=== PATIENT | female | born 1950 | race Caucasian/White ===

== ENCOUNTER 2017-04-30 18:39 | Emergency (ER) | payer MEDICAID, MEDICARE ==
[~2017-04-30] VITALS: Ht 157.5 cm; Wt 57.0 kg
[~2017-04-30 18:39] MED LIST: BACL-19 PO; CALC500T PO; ENOX40SY4 SQ; FLUO10CA7 PO; GUAI237S4 PO; HYDR-3138 PO; HYDR-3240 PO; LORA-446 PO; METO25TA35 PO; NICO1PAT4 TD; ONDA4TAB7 PO; SENN8.6T98 PO; TEMA15CA PO
[2017-04-30 18:40] VITALS: BP 117/80
[2017-04-30] MEDS ORDERED: SODIUM CHLORIDE FLUSH 10ML SYR IVF ONE (19:00)
[2017-04-30] MEDS ORDERED: SODIUM CHLORIDE 0.9% 1,000ML IVBOLUS ONE (19:00)
[2017-04-30] MEDS ORDERED: FAMOTIDINE 20 MG/2 ML IVPush ONE (19:00)
[2017-04-30] MEDS ORDERED: MAALOX/HYOSCYAMINE/LIDOCAINE 45 ML BTL PO ONE (19:00)
[2017-04-30] MEDS ORDERED: ONDANSETRON 2MG/ML, 2ML IVPush ONE (19:00)
[2017-04-30 19:27] LABS: BLOOD UREA NITROGEN 3 mg/dL (7-18)
[2017-04-30 19:32] LABS: ASPARTATE AMINO TRANSFERASE 27 U/L (15-37)
[2017-04-30 19:35] LABS: IS PT STATUS REG ER OR PRE ER? YES
== END 2017-04-30 19:45 | disposition left against medical advice (07) ==
LOC: ED 19:39
DX: R07.2 Precordial pain (principal); F10.229 Alcohol dependence with intoxication, unspecified; R11.2 Nausea with vomiting, unspecified; F32.9 Major depressive disorder, single episode, unspecified; K21.9 Gastro-esophageal reflux disease without esophagitis; F41.9 Anxiety disorder, unspecified
CPT/HCPCS: 36415; 71010; 80053; 83690; 84484; 85025; 93005; 99285

== ENCOUNTER 2017-05-02 15:27 | Inpatient (IN) | payer OTHER, MEDICARE ==
[~2017-05-02] VITALS: Ht 157.5 cm; Wt 54.0 kg
[2017-05-02] MEDS ORDERED: PROMETHAZINE 25 MG/ML, 1ML ONE (15:37)
[2017-05-02] MEDS ORDERED: ONDANSETRON 2MG/ML, 2ML ONE (15:37)
[2017-05-02] MEDS ORDERED: SODIUM CHLORIDE 0.9% 1,000 ML IV ONE (15:38)
[2017-05-02] MEDS ORDERED: ONDANSETRON 2MG/ML, 2ML IVPush ONE (16:00)
[2017-05-02] MEDS ORDERED: PROMETHAZINE 25 MG/ML, 1ML IM ONE (16:00)
[2017-05-02] MEDS ORDERED: SODIUM CHLORIDE FLUSH 10ML SYR IVF ONE (16:00)
[2017-05-02] MEDS ORDERED: FAMOTIDINE 20 MG/2 ML IVP ONE (16:00)
[2017-05-02] MEDS ORDERED: SODIUM CHLORIDE 0.9% 1,000ML IVBOLUS ONE ×2 (16:00→16:30)
[2017-05-02] MEDS ORDERED: FAMOTIDINE 20 MG/2 ML ONE (16:00)
[2017-05-02] MEDS ORDERED: PLEASE ENTER HEIGHT AND WEIGHT MC SCH (16:00)
[2017-05-02 16:20] LABS: BLOOD UREA NITROGEN 4 mg/dL (7-18)
[2017-05-02 16:22] LABS: IS PT STATUS REG ER OR PRE ER? YES
[2017-05-02 16:25] LABS: ASPARTATE AMINO TRANSFERASE 26 U/L (15-37)
[2017-05-02] MEDS ORDERED: [UNRECOGNIZED DRUG - REMARK] (17:43)
[2017-05-02] MEDS ORDERED: ENALAPRILAT 1.25 MG/ML, 2ML IVPush PRN (18:00)
[2017-05-02] MEDS ORDERED: TEMAZEPAM 15 MG CAPSULE PO PRN (18:00)
[2017-05-02] MEDS: ENOXAPARIN 40 MG/0.4 ML SQ SCH (18:00)
[2017-05-02 20:39] VITALS: BP 126/75
[2017-05-02] MEDS: SODIUM CHLORIDE 0.9% 1,000 ML IV SCH (21:12)
[2017-05-02] MEDS: ONDANSETRON 2MG/ML, 2ML IVPush PRN (21:13)
[2017-05-02] MEDS: LORazepam 2 MG/ML, 1ML IVPush PRN (22:15)
[2017-05-03] MEDS ORDERED: DIPHENHYDRAMINE 25 MG CAPSULE PO PRN (00:30)
[2017-05-03] MEDS ORDERED: methylPREDNISolone SOD SUCC 125 MG/2 ML IVPush ONE (00:30)
[2017-05-03] MEDS: SODIUM CHLORIDE 0.9% 1,000 ML IV SCH ×3 (03:15→17:16)
[2017-05-03 04:11] VITALS: BP 119/63
[2017-05-03 05:18] LABS: BLOOD UREA NITROGEN 3 mg/dL (7-18)
[2017-05-03 05:22] LABS: ASPARTATE AMINO TRANSFERASE 25 U/L (15-37)
[2017-05-03 07:48] VITALS: BP 137/78
[2017-05-03] MEDS ORDERED: POTASSIUM CHLORIDE 20 MEQ TAB.ER.PRT PO ONE (08:00)
[2017-05-03] MEDS ORDERED: MAGNESIUM SULFATE PMX 2GM/50ML 50 ML IV ONE (08:00)
[2017-05-03] MEDS: LORazepam 2 MG/ML, 1ML IVPush PRN ×3 (08:19→21:19)
[2017-05-03] MEDS: ONDANSETRON 2MG/ML, 2ML IVPush PRN (08:24)
[2017-05-03] MEDS ORDERED: LEVO25TA4 PO (10:00)
[2017-05-03] MEDS ORDERED: ESCI10TA10 PO (10:00)
[2017-05-03 13:10] VITALS: BP 161/84
[2017-05-03] MEDS: THIAMINE 100MG TABLET PO SCH (14:33)
[2017-05-03] MEDS: LORazepam 1MG TABLET PO PRN (14:33)
[2017-05-03] MEDS: FOLIC ACID 1 MG TABLET PO SCH (14:33)
[2017-05-03] MEDS: MULTIVITAMIN 1 TABLET PO SCH (14:33)
[2017-05-03] MEDS: ENOXAPARIN 40 MG/0.4 ML SQ SCH (17:17)
[2017-05-03 19:55] VITALS: BP 114/69
[2017-05-04] MEDS: SODIUM CHLORIDE 0.9% 1,000 ML IV SCH ×3 (00:56→17:03)
[2017-05-04 01:05] VITALS: BP 153/76
[2017-05-04] MEDS: LEVOTHYROXINE 25 MCG TABLET PO SCH (05:42)
[2017-05-04] MEDS: ONDANSETRON 2MG/ML, 2ML IVPush PRN (05:51)
[2017-05-04 05:52] LABS: BLOOD UREA NITROGEN 4 mg/dL (7-18)
[2017-05-04 05:55] LABS: ASPARTATE AMINO TRANSFERASE 25 U/L (15-37)
[2017-05-04 08:32] VITALS: BP 152/78
[2017-05-04] MEDS ORDERED: CALCIUM GLUCONATE 4.6 MEQ in SODIUM CHLORIDE 0.9% 50 ML IV ONE (09:00)
[2017-05-04] MEDS: MULTIVITAMIN 1 TABLET PO SCH (09:21)
[2017-05-04] MEDS: THIAMINE 100MG TABLET PO SCH (09:21)
[2017-05-04] MEDS: POTASSIUM CHLORIDE 20 MEQ TAB.ER.PRT PO SCH ×2 (09:21→17:00)
[2017-05-04] MEDS: FOLIC ACID 1 MG TABLET PO SCH (09:21)
[2017-05-04] MEDS: LORazepam 2 MG/ML, 1ML IVPush PRN ×3 (13:56→23:26)
[2017-05-04 15:10] VITALS: BP 150/74
[2017-05-04] MEDS: HYDROcodone/APAP 5/325 TABLET PO PRN ×2 (15:33→19:50)
[2017-05-04] MEDS: ENOXAPARIN 40 MG/0.4 ML SQ SCH (17:03)
[2017-05-04 20:00] VITALS: BP 154/81
[2017-05-05] MEDS: SODIUM CHLORIDE 0.9% 1,000 ML IV SCH ×3 (01:21→22:05)
[2017-05-05 02:00] VITALS: BP 144/83
[2017-05-05 05:23] LABS: BLOOD UREA NITROGEN 5 mg/dL (7-18)
[2017-05-05 05:28] LABS: ASPARTATE AMINO TRANSFERASE 22 U/L (15-37)
[2017-05-05] MEDS: LEVOTHYROXINE 25 MCG TABLET PO SCH (05:55)
[2017-05-05 07:52] VITALS: BP 139/83
[2017-05-05] MEDS ORDERED: LISINOPRIL 10 MG TABLET PO SCH (09:00)
[2017-05-05] MEDS: THIAMINE 100MG TABLET PO SCH (09:03)
[2017-05-05] MEDS: HYDROcodone/APAP 5/325 TABLET PO PRN (09:03)
[2017-05-05] MEDS: MULTIVITAMIN 1 TABLET PO SCH (09:03)
[2017-05-05] MEDS: FOLIC ACID 1 MG TABLET PO SCH (09:03)
[2017-05-05] MEDS: POTASSIUM CHLORIDE 20 MEQ TAB.ER.PRT PO SCH ×2 (09:04→17:24)
[2017-05-05] MEDS ORDERED: OMNIPAQUE 350 MG/ML, 100ML BOTTLE ONE (09:30)
[2017-05-05] MEDS: NICOTINE 7 MG/24 HR PATCH.TD24 TD SCH (12:12)
[2017-05-05 14:44] VITALS: BP 88/53
[2017-05-05] MEDS: ENOXAPARIN 40 MG/0.4 ML SQ SCH (17:24)
[2017-05-05] MEDS ORDERED: SODIUM CHLORIDE 0.9%, 500ML IVBOLUS ONE (17:30)
[2017-05-05 19:03] VITALS: BP 95/64
[2017-05-05 21:46] VITALS: BP 103/65
[2017-05-05] MEDS: LORazepam 1MG TABLET PO PRN (22:05)
[2017-05-06 01:13] VITALS: BP 124/73
[2017-05-06] MEDS: HYDROcodone/APAP 5/325 TABLET PO PRN (02:07)
[2017-05-06] MEDS: LORazepam 1MG TABLET PO PRN (03:00)
[2017-05-06 05:11] LABS: BLOOD UREA NITROGEN 8 mg/dL (7-18)
[2017-05-06 05:15] LABS: ASPARTATE AMINO TRANSFERASE 18 U/L (15-37)
[2017-05-06] MEDS: SODIUM CHLORIDE 0.9% 1,000 ML IV SCH (06:29)
[2017-05-06] MEDS: LEVOTHYROXINE 25 MCG TABLET PO SCH (06:29)
[2017-05-06] MEDS ORDERED: NICO1PAT10 TD (07:00)
[2017-05-06] MEDS ORDERED: FOLI-17 PO (07:00)
[2017-05-06] MEDS ORDERED: THIA100T6 PO (07:00)
[2017-05-06] MEDS ORDERED: MULT1TAB60 PO (07:00)
[2017-05-06 07:06] VITALS: BP 95/60
[2017-05-06] MEDS: THIAMINE 100MG TABLET PO SCH (10:18)
[2017-05-06] MEDS: MULTIVITAMIN 1 TABLET PO SCH (10:18)
[2017-05-06] MEDS: NICOTINE 7 MG/24 HR PATCH.TD24 TD SCH (10:18)
[2017-05-06] MEDS: POTASSIUM CHLORIDE 20 MEQ TAB.ER.PRT PO SCH (10:18)
[2017-05-06] MEDS: FOLIC ACID 1 MG TABLET PO SCH (10:18)
== END 2017-05-06 12:00 | disposition home or self-care (01) | DRG 897 ==
LOC: SUATTDRO 17:37 → ED 17:58 → EDIP 18:42 → 3NE 19:45 → DCLOUNGE 05-06 11:14
PROVIDERS: ADMIT Internal Medicine; ATTEND Internal Medicine
DX: F10.229 Alcohol dependence with intoxication, unspecified (principal); E87.2 Acidosis; E44.1 Mild protein-calorie malnutrition; R17 Unspecified jaundice; E87.1 Hypo-osmolality and hyponatremia; F17.210 Nicotine dependence, cigarettes, uncomplicated; E87.6 Hypokalemia; E83.51 Hypocalcemia; E03.9 Hypothyroidism, unspecified; F10.239 Alcohol dependence with withdrawal, unspecified; Z68.21 Body mass index [BMI] 21.0-21.9, adult
CPT/HCPCS: 36415; 71010; 74022; 74177; 80053; 80307; 81001; 82330; 83605; 83690; 83735; 84484; 85025; 93005; 96361; 96372; 96374; 96375; 99285; J0610; J1650; J2405; J2550; Q9967; J2060; J2930; J3475; J7030; J7040; Q0163; S0028